=== PATIENT | female | born 1980 ===

== ENCOUNTER 2017-08-10 07:30 | Inpatient (IN) | payer OTHER ==
[~2017-08-10] VITALS: Ht 152.4 cm; Wt 63.5 kg
[~2017-08-10 07:30] MED LIST: ATENOLOL25 MG PO; POLY119PG PO; SURFAK240 M1 PO; SYNTHROID75 MCG PO; ULTRACET PO
[2017-08-10] MEDS ORDERED: SINGULAIR10 MG PO (09:44)
== END 2017-08-14 17:22 | disposition home or self-care (01) | DRG 983 ==
LOC: SURH 08-13 07:00 → SURG 08-13 07:25 → O/R 08-13 07:25 → SURH 08-13 07:30 → SURG 08-13 20:23
PROVIDERS: Plastic Surgery
PROC: 0HB7XZZ Excision of Abdomen Skin, External Approach (ICD-10-PCS; principal; 2017-08-13 07:00)
PROC: 0H0V0ZZ Alteration of Bilateral Breast, Open Approach (ICD-10-PCS; 2017-08-13 07:00)
DX: E66.01 Morbid (severe) obesity due to excess calories (principal); M62.08 Separation of muscle (nontraumatic), other site; N62 Hypertrophy of breast; E65 Localized adiposity; Z98.84 Bariatric surgery status